=== PATIENT | male | born 1950 | race Caucasian/White ===

== ENCOUNTER → 2016-11-02 | Outpatient (CLI) | payer MEDICARE, BC ==
[~2016-11-02] MED LIST: LIPITOR20 MG DOB; LISINOPRIL-HCTZ1 T14 PO; NO MEDICATIONS; OMEPRAZOLE40 M1 PO; PERCOCET 10/3251 TAB PO; PRILOSEC PO
== END | disposition home or self-care (01) ==
LOC: CECH 12:42
DX: I25.10 Atherosclerotic heart disease of native coronary artery without angina pectoris (principal); I51.7 Cardiomegaly
CPT/HCPCS: 93306